=== PATIENT | female | born 1980 | race Caucasian/White ===

== ENCOUNTER → 2016-09-24 | Outpatient (CLI) | payer BC ==
--- NOTE | 2016-09-24 14:19 | Diagnostic Imaging Report ---
INDICATION: Nonvisualization of the IUD strings. COMPARISON: None. DISCUSSION: Transabdominal and transvaginal sonographic evaluation of the pelvis was performed. The uterus is normal in echotexture and size measuring 7.4 x 4.1 x 3.6 cm. Normal endometrial thickness measuring 0.5 cm. The IUD appears to be within the lower uterine segment. The ovaries appear normal in echotexture and size bilaterally with normal color Doppler blood flow. The right ovary measures 3.3 x 3.1 x 1.9 cm. The left ovary measures 2.3 x 2.1 x 1.3 cm. No abnormal adnexal mass or fluid. IMPRESSION: 1. The IUD appears to be located within the lower uterine segment. Dictated by: Dictated on workstation # [id number]
--- NOTE | 2016-09-24 19:33 | Diagnostic Imaging Report ---
Right breast diagnostic mammogram with tomosynthesis. INDICATION: Palpable lump felt by Dr. Connors in the upper aspect of the right breast. The current study was also evaluated with a Computer Aided Detection (CAD) system. FINDINGS: The right breast is composed of extremely dense parenchyma. There are dispersed punctate calcifications seen in the right breast without clustering in a focal area or along a single segment. IMPRESSION: Dense breast parenchyma with no focal abnormality seen. Ultrasound was also performed with no abnormality identified. Clinical followup of the palpable abnormality is recommended. If it persists or is associated with significant clinical suspicion, then further evaluation with breast MRI could be considered. ACR BI-RADS Category 2: Benign findings. Result letter will be mailed to the patient. Note: At least 10% of breast cancer is not imaged by mammography. Dictated by: Dictated on workstation # [id number]
--- NOTE | 2016-09-24 19:51 | Diagnostic Imaging Report ---
EXAM: Ultrasound of the right breast. INDICATION: Palpable lump at 12:00 o'clock zone in the right breast. FINDINGS: The palpable area around 12:00 o'clock was scanned along with the surrounding region in the upper breast and retroareolar region with no other abnormality seen. IMPRESSION: Negative study. Clinical correlation is recommended. If the symptoms persist or are associated with significant clinical suspicion, then MRI evaluation could be considered. BI-RADS 1. ACR BI-RADS Category 1: Negative. Result letter will be mailed to the patient. Note: At least 10% of breast cancer is not imaged by mammography. Dictated by: Dictated on workstation # [id number]
== END ==
LOC: RAD 12:22
PROVIDERS: ATTEND Obstetrics & Gynecology
DX: T83.39XA Other mechanical complication of intrauterine contraceptive device, initial encounter (principal); N63 Unspecified lump in breast
CPT/HCPCS: 76830; 76856